=== PATIENT | male | born 1970 | race Hispanic/Latino ===

== ENCOUNTER → 2025-05-14 | Outpatient (CLI) | payer OTHER ==
--- NOTE | 2025-05-14 18:53 | HMCIMG ---
EXAM: CR Chest, 1 View. CLINICAL HISTORY: SHORTNESS OF BREATH COMPARISON: None provided. FINDINGS: LUNGS: There is no mass, infiltrate, or acute pulmonary abnormality. PLEURAL SPACES: No pleural effusion or pneumothorax. MEDIASTINUM: The cardiomediastinal silhouette is within normal limits. BONES: No acute osseous abnormality. IMPRESSION: No acute cardiopulmonary pathology is evident. /[place]
== END | disposition home or self-care (01) ==
LOC: RESP 12:54
PROVIDERS: ATTEND Internal Medicine
DX: R06.02 Shortness of breath (principal); Z20.822 Contact with and (suspected) exposure to COVID-19
CPT/HCPCS: 71045; 94060; 94727; 94729